=== PATIENT | male | born 1970 | race Caucasian/White ===

== ENCOUNTER → 2022-08-13 | Outpatient (CLI) | payer OTHER ==
[2022-08-13 15:09] LABS: HEMATOCRIT 50.5 % (42.0-52.0)
== END ==
LOC: LAB 14:54
PROVIDERS: Internal Medicine Medical Oncology
DX: E83.119 Hemochromatosis, unspecified (principal)

== ENCOUNTER → 2022-08-20 | Outpatient (CLI) | payer OTHER ==
[2022-08-20 11:29] LABS: HEMATOCRIT 46.7 % (42.0-52.0); HEMOGLOBIN 16.6 g/dL (13.5-18.0)
== END ==
LOC: LAB 11:08
PROVIDERS: Internal Medicine Medical Oncology
DX: E83.119 Hemochromatosis, unspecified (principal)

== ENCOUNTER → 2022-08-27 | Outpatient (CLI) | payer OTHER ==
[2022-08-27 15:03] LABS: HEMATOCRIT 45.3 % (42.0-52.0)
== END ==
LOC: LAB 14:44
PROVIDERS: Internal Medicine Medical Oncology
DX: E83.119 Hemochromatosis, unspecified (principal)

== ENCOUNTER → 2022-09-19 | Outpatient (CLI) | payer OTHER ==
[2022-09-19 14:34] LABS: HEMATOCRIT 45.3 % (42.0-52.0); HEMOGLOBIN 16.2 g/dL (13.5-18.0)
== END ==
LOC: LAB 14:15
PROVIDERS: Internal Medicine Medical Oncology
DX: E83.119 Hemochromatosis, unspecified (principal)

== ENCOUNTER → 2023-02-03 | Outpatient (CLI) | payer OTHER ==
[2023-02-03 16:14] LABS: HEMATOCRIT 45.7 % (42.0-52.0); HEMOGLOBIN 16.3 g/dL (13.5-18.0)
== END ==
LOC: LAB 15:38
DX: E83.119 Hemochromatosis, unspecified (principal)

== ENCOUNTER → 2023-02-09 | Outpatient (CLI) | payer OTHER ==
[2023-02-09 16:26] LABS: HEMATOCRIT 45.5 % (42.0-52.0); HEMOGLOBIN 15.8 g/dL (13.5-18.0)
== END ==
LOC: LAB 16:08
DX: E83.119 Hemochromatosis, unspecified (principal)

== ENCOUNTER → 2023-02-16 | Outpatient (CLI) | payer OTHER ==
[2023-02-16 17:31] LABS: HEMATOCRIT 45.2 % (42.0-52.0); HEMOGLOBIN 15.9 g/dL (13.5-18.0)
== END ==
LOC: LAB 17:11
DX: E83.119 Hemochromatosis, unspecified (principal)

== ENCOUNTER → 2023-03-16 | Outpatient (CLI) | payer OTHER ==
[2023-03-16 16:40] LABS: HEMATOCRIT 43.8 % (42.0-52.0); HEMOGLOBIN 15.8 g/dL (13.5-18.0)
== END ==
LOC: LAB 16:12
PROVIDERS: Nurse Practitioner
DX: E83.119 Hemochromatosis, unspecified (principal)

== ENCOUNTER → 2023-03-24 | Outpatient (CLI) | payer OTHER ==
[2023-03-24 16:15] LABS: HEMATOCRIT 44.9 % (42.0-52.0); HEMOGLOBIN 15.8 g/dL (13.5-18.0)
== END ==
LOC: LAB 16:03
DX: E83.119 Hemochromatosis, unspecified (principal)

== ENCOUNTER → 2023-05-04 | Outpatient (CLI) | payer OTHER ==
[2023-05-04 16:21] LABS: HEMOGLOBIN 16.2 g/dL (13.5-18.0)
== END ==
LOC: LAB 16:05
PROVIDERS: Nurse Practitioner
DX: E83.119 Hemochromatosis, unspecified (principal)

== ENCOUNTER → 2023-05-12 | Outpatient (CLI) | payer OTHER ==
[2023-05-12 16:03] LABS: HEMATOCRIT 45.3 % (42.0-52.0); HEMOGLOBIN 16.1 g/dL (13.5-18.0)
== END ==
LOC: LAB 15:52
PROVIDERS: Nurse Practitioner
DX: E83.119 Hemochromatosis, unspecified (principal)

== ENCOUNTER → 2023-06-09 | Outpatient (CLI) | payer OTHER ==
[2023-06-09 14:47] LABS: HEMATOCRIT 47.8 % (42.0-52.0); HEMOGLOBIN 17.3 g/dL (13.5-18.0)
== END ==
LOC: LAB 14:24
PROVIDERS: Nurse Practitioner
DX: E83.119 Hemochromatosis, unspecified (principal)